=== PATIENT | female | born 1950 | race Caucasian/White ===

== ENCOUNTER 2024-07-13 22:37 | Observation (INO) ==
--- NOTE | 2024-07-13 22:48 | Emergency Department Note ---
HPI - Altered Mental Status General Chief Complaint: Altered Mental Status Stated Complaint: ALTERED MENTAL STATUS Time Seen by Provider: 07/13/24 22:43 Source: patient and family Mode of arrival: walk-in Limitations: no limitations History of Present Illness HPI narrative: 73 yo female presented via family with acute onset confusion, difficulty speaking, incoordination between thought and written word. No other loss of sensation or function of arms or legs. No dyspnea or cheat pain. Patient was sent to [facility] this week with NSTEMI and had a LHC with Dr. Suzette Alba on 07/12/24. He did not stent. She takes Plavix and 81mg ASA daily. Concern is high for post-ischemic or post-cath thrombus or plaque and resultant TIA. Symptoms reportedly began suddenly with inability to write what she was thinking and then dysarthria and dysphasia. Within the next hour she slowly improved with an NIH score "0" on initial assessment here. Stat CT was ordered, code stroke initiated. I have personally reviewed the TRIAGE and nursing intake notes and I agree with those. I also reviewed the available medical history and prior visit notes (where available) for this patient. No NVD, chest or abdominal pain. VSS, AAOx4, GCS=15, ambulatory, NAD. Tolerating PO. MD complaint: altered mental status, confusion and weakness Onset (ago): hour(s) (1) Timing confirmed by: family member Severity: mild-moderate Consistency of symptoms: unknown (resolved) Context: other (see note) Associated symptoms: denies other symptoms Related Data Allergies Allergy/AdvReac Type Severity Reaction Status Date / Time amlodipine Allergy Mild Verified 07/13/24 22:51 promethazine (From Phenergan) Allergy Mild Verified 07/13/24 22:51 Review of Systems Status of ROS 10 or more systems reviewed and unremark able except as noted in history and below PFSH PFSH Medical History (Updated 07/14/24 @ 00:19 by Aaliyah Mclaughlin RN) Anxiety HLD (hyperlipidemia) HTN (hypertension) CAD (coronary artery disease) Surgical History (Updated 07/14/24 @ 00:19 by Aaliyah Mclaughlin RN) Hx of CABG Social History Smoking status: never smoker Problems where you live: no known problems Highest level of school completed/degree received: high school Feel stressed/tense/nervous/anxious/difficulty sleeping: not at all Exam Constitutional: normal general appearance and no apparent distress Vital Signs - 24 hr 07/13/24 22:37 07/13/24 23:30 07/14/24 00:30 Temperature 98 F Pulse Rate 68 74 71 Pulse Rate [Right Brachial] Respiratory Rate 16 16 14 Blood Pressure 164/75 195/86 196/89 Blood Pressure [Ri ght Arm] Pulse Oximetry 100 97 99 Oxygen Delivery Me thod Room Air Room Air Room Air 07/14/24 01:15 07/14/24 01:23 Temperature 98.8 F Pulse Rate 67 Pulse Rate [Right Brachial] 78 Respiratory Rate 13 18 Blood Pressure 147/63 Blood Pressure [Ri ght Arm] 158/69 Pulse Oximetry 97 97 Oxygen Delivery Me thod Room Air Room Air HENMT: normocephalic and head/scalp atraumatic Eyes: PERRL and EOMs intact bilaterally Neck/C-Spine: visual inspection normal, trachea midline and no meningeal signs Lymph: no lymphadenopathy noted Chest: inspection of chest normal and palpation of chest normal Respiratory: breath sounds equal bilaterally and normal respiratory effort Cardiovascular: normal heart rate noted, regular rhythm noted and peripheral pulses 2+ throughout Gastrointestinal: abdomen normal to inspection and abdomen soft to palpation Extremities: normal to inspection and normal to palpation 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 Psychiatry: mental status grossly normal and oriented x3 Skin: skin color normal and no rash Course Reevaluation(s) Reevaluation #1: Differential diagnosis includes possible CVA hemorrhagic -vs infarct. Primary exam with/without AMS (GCS = ) on arrival. Airway intact. Patient with acute onset headache (location), confusion, pain described as stabbing, sudden/ progressive onset. Prior history/No prior history headaches or CVA/TIA. Currently euvolemic without evidence of dehydration or hyperglycemia. Doubt bacterial pneumonia as no recent fever, chills, cough. No recent travel or hospitalization. No ill family members. Patient is not immunocompromised. CHF is possible but no JVD or peripheral edema. TAA unlikely with similar bilateral UE pulses and BP. No recent trauma so doubtful cardiac tamponade (no chest trauma or distended neck veins) or tension PTx (no absent BS or deviated trachea). No evidence of surgical abdomen or other acute medical emergency including bowel obstruction, viscus perforation, vascular catastrophe, atypical appendicitis, acute cholecystitis, UGIB, thyrotoxicosis, or diverticulitis at this time. Reevaluation #2: I did speak with Dr. West at [facility] regarding presentation, etc. He agrees with assessment and my concern of a post-cath embolism and TIA. He also agrees with admission here and echo as soon as available. She will need serial neurochecks, telemetry. Vital Signs Vital signs: Vital Signs Temperature 98 F 07/13/24 22:37 Pulse Rate 68 07/13/24 22:37 Respiratory Rate 16 07/13/24 22:37 Blood Pressure 164/75 07/13/24 22:37 Pulse Oximetry 100 07/13/24 22:37 Oxygen Delivery Method Room Air 07/13/24 22:37 Temperature 98.8 F 07/14/24 02:39 Pulse Rate 78 07/14/24 02:39 Respiratory Rate 18 07/14/24 02:39 Blood Pressure 158/69 07/14/24 02:39 Pulse Oximetry 98 07/14/24 02:39 Oxygen Delivery Method Room Air 07/14/24 02:39 MDM - Altered Mental Status MDM Narrative Medical decision making narrative: Differential diagnosis includes possible CVA hemorrhagic -vs infarct - vs TIA. Primary exam with/without AMS (GCS =15) on arrival. Airway intact. Patient with no acute onset headache, but transient confusion, dysarthria and dysphasia consistent with TIA. Prior history/No prior history headaches or CVA/TIA. Currently euvolemic without evidence of dehydration or hyperglycemia. Doubt bacterial pneumonia as no recent fever, chills, cough. No recent travel or hospitalization. No ill family members. Patient is not immunocompromised. CHF is possible but no JVD or peripheral edema. TAA unlikely with similar bilateral UE pulses and BP. No recent trauma so doubtful cardiac tamponade (no chest trauma or distended neck veins) or tension PTx (no absent BS or deviated trachea). No evidence of surgical abdomen or other acute medical emergency including bowel obstruction, viscus perforation, vascular catastrophe, atypical appendicitis, acute cholecystitis, UGIB, thyrotoxicosis, or diverticulitis at this time. Medical Records Attestation: I reviewed the patient's medical records. Lab Data Attestation: I reviewed the patient's lab results. Labs: Lab Results 07/13/24 07/13/24 Range/Units 21:45 23:10 WBC 4.8 (4.3-9.3) K/uL RBC 4.2 (4.00-5.50) M/uL Hgb 13.5 (12.5-15.8) gm/dL Hct 38.1 (35.9-46.7) % MCV 91.8 (81.0-93.7) fl MCH 32.6 H (27.6-32.2) pg MCHC 35.5 H (33.1-35.3) g/dl RDW 12.5 (11.4-14.2) % Plt Count 307 (152-353) K/uL MPV 8.2 (6.9-10.8) fl Gran % 46.4 L (47.8-71.3) % Lymph % (Auto) 36.4 (20.0-43.0) % [place] % (Auto) 15.3 H (3.6-9.8) % Eos % (Auto) 1.3 (0.4-2.8) % Baso % (Auto) 0.6 (0.1-0.85) Lymph # (Auto) 1.7 (1.1-3.1) [place] # (Auto) 0.7 L (1.1-3.1) Eos # (Auto) 0.1 (0.0-0.2) Baso # (Auto) 0.0 (0.0-0.1) Absolute Gran (auto) 2.2 L (2.3-6.0) PT 12.9 (12.1-15.0) SECONDS PT Normal Control 13.7 INR 0.92 APTT 25.8 (23.9-36.7) SECONDS Sodium 131 L (136-145) mmol/L Potassium 3.5 L (3.6-5.2) mmol/L Chloride 91.0 L (98-107) mmol/L Carbon Dioxide 34 H (21-32) mmol/L Anion Gap 6.0 (4-14) mEq/L BUN 19 H (7-18) mg/dL Creatinine 1.0 (0.6-1.3) mg/dL Estimated GFR 59.9 (>59.9) Glucose 71 (70-110) mg/dL Lactic Acid 0.8 (0.27-1.43) mmol/L Calcium 9.3 (8.5-10.1) mg/dL Magnesium 2.0 (1.8-2.4) mg/dL Total Bilirubin 0.41 (0.0-1.0) mg/dL AST 23 (15-37) U/L ALT 21 L (30-65) U/L Alkaline Phosphatase 80 (50-136) U/L Total Protein 7.3 (6.4-8.2) g/dL Albumin 4.6 (3.4-5.0) g/dL Imaging Data Imaging ordered: Chest x-ray (No focal consolidation is seen.) and CT scan - head (Mild cortical atrophy with microvascular ischemic white matter changes. No acute intracranial pathology) Attestation: I have reviewed the pertinent imaging results. My impression: NAD head and chest Radiologist's impression: See note above ECG Data Attestation: I personally reviewed and interpreted this ECG as follows: (NSR @ 66 w/LVH) ECG interpretation date: 07/13/24 ECG interpretation time: 23:40 Prior ECG tracings: not available for review Core Measures AMI core measures followed [ED.MDM.AMI]: Yes Critical Care Time Critical Care Time Critical Care Time: Yes Total Critical Care Time: 75 Attestation: Due to the presence of AMS__ or the risk of deterioration due to _TIA___ my attendance to this patient required critical care time of _75__ minutes, including assessment/reassessment, documentation, ordering and interpreting ancillary studies, discussion with ED staff and consultants, patient and their family, and excludes time spent on separately billable procedures. Discharge Plan Discharge Patient Disposition: Admitted As Observation Condition: Improved Clinical Impression: Brain TIA, Altered mental status, CAD (coronary artery disease) Interventions: ED Discharge Assessment Last Done: 07/14/24 02:30 ED Discharge Vital Sign Last Done: 07/14/24 02:30 Emergency Department Charge Sheet Last Done: 07/14/24 02:38 Time of Disposition: 01:34 Discharge Date/Time: 07/14/24 02:30
[2024-07-13 23:00] LABS: Basophils%(Percent) Auto 0.6 (0.1-0.85); Eosinophils#(Absolute)Auto 0.1 (0.0-0.2); Eosinophils%(Percent) Auto 1.3 % (0.4-2.8); Granulocytes % - Auto 46.4 % (47.8-71.3); Granulocytes#(Absolute)- Auto 2.2 (2.3-6.0); Hematocrit 38.1 % (35.9-46.7); Mean Corpuscular Volume 91.8 fl (81.0-93.7); Monocytes #(Absolute)- Auto 0.7 (1.1-3.1); Monocytes %(Percent)- Auto 15.3 % (3.6-9.8); Platelet Count 307 K/uL (152-353); White Blood Count 4.8 K/uL (4.3-9.3)
[2024-07-13 23:34] LABS: INR 0.92
[2024-07-14 00:47] LABS: Potassium 3.5 mmol/L (3.6-5.2)
[2024-07-14] MEDS ORDERED: ACETAMINOPHEN 325 MG TABLET PO PRN (01:28)
[2024-07-14] MEDS: LORazepam 1 MG TABLET PO PRN (03:06)
[2024-07-14 05:09] LABS: Basophils%(Percent) Auto 0.6 (0.1-0.85); Eosinophils%(Percent) Auto 0.6 % (0.4-2.8); Granulocytes % - Auto 64.5 % (47.8-71.3); Hematocrit 35.6 % (35.9-46.7); Mean Corpuscular Volume 91.6 fl (81.0-93.7); Monocytes #(Absolute)- Auto 0.5 (1.1-3.1); Monocytes %(Percent)- Auto 10.6 % (3.6-9.8); Platelet Count 233 K/uL (152-353); White Blood Count 4.7 K/uL (4.3-9.3)
[2024-07-14 05:45] LABS: Potassium 3.2 mmol/L (3.6-5.2)
[2024-07-14] MEDS ORDERED: ALPRAZolam 1 MG TABLET PO SCH (10:15)
[2024-07-14] MEDS: ALPRAZolam 1 MG TABLET ONE (10:17)
[2024-07-14] MEDS: ALPRAZolam 1 MG TABLET PO STA (10:18)
[2024-07-14] MEDS: carvediloL 6.25 MG TABLET PO SCH (11:45)
[2024-07-14] MEDS: PANTOPRAZOLE SODIUM 40 MG TABLET.DR PO SCH (14:47)
[2024-07-14] MEDS: CLOPIDOGREL BISULFATE 75 MG TABLET PO SCH (14:47)
[2024-07-14] MEDS: SERTRALINE HCL 50 MG TABLET PO SCH (14:48)
[2024-07-14] MEDS: LOSARTAN POTASSIUM 50 MG TABLET PO SCH ×2 (14:50→20:49)
[2024-07-14] MEDS: ALPRAZolam 1 MG TABLET PO SCH ×2 (15:00→15:07)
[2024-07-14] MEDS: ATORVASTATIN CALCIUM 10 MG TABLET PO SCH (20:50)
[2024-07-15 04:31] VITALS: RESP 16
[2024-07-15 07:53] VITALS: BP 178/77; TEMP 98.1
[2024-07-15] MEDS: hydroCHLOROthiazide 25 MG TABLET PO SCH (08:47)
[2024-07-15] MEDS ORDERED: BUTALB/ACETAMINOPHEN/CAFFEINE 1 EACH TABLET PO PRN (12:00)
[2024-07-15] MEDS ORDERED: NITROGLYCERIN 0.4 MG TAB.SUBL SL PRN (12:00)
[2024-07-15 12:29] VITALS: PULSE 68
[2024-07-15] MEDS: ALPRAZolam 1 MG TABLET PO SCH (12:29)
--- NOTE | 2024-07-15 12:31 | Discharge Summary ---
DS: Providers Provider Date of admission: 07/14/24 01:28 Primary care physician: Zurdo Ramírez NP DS: Diagnosis Discharge Diagnosis (1) TIA (transient ischemic attack): Plan Home with OP Echo PCP 1 week Neurology referral Cardiology F/U 1-2 weeks DS: Summary Hospital Course Hospital Course: Ms. Davidson was admitted on 07/14/24 from the ED with complain of slurred speech that lasted only 15 minutes after arrival. Recently had cardiac cathetherization last week and she has been on plavix and aspirin. Labs were stable during her stay. BP was elevated but appropriate for outpatient treatment. Echo was ordered but with patient improvement and stabilization arrangements were made for outpatient echo. Neurology referral was also made for discharge, cardiology for echo follow up. Follow up with PCP in 1 week. Status at Discharge Functional status at discharge: independent ambulation Overall status at discharge: patient is back to baseline Time Spent with Patient Time attestation: Total time spent providing and/or coordinating discharge services: Time spent: greater than 30 minutes Exam Constitutional: normal general appearance Vital Signs - 24 hr 07/14/24 15:00 07/14/24 19:00 07/14/24 19:18 Temperature 98.2 F 97.7 F 97.7 F Pulse Rate [Right Brachial] 60 70 70 Respiratory Rate 19 20 20 Blood Pressure Blood Pressure [Ri ght Arm] 134/64 152/56 152/56 Pulse Oximetry 100 98 98 Oxygen Delivery Me thod Room Air Room Air Room Air 07/14/24 20:49 07/14/24 23:00 07/15/24 03:00 Temperature 97.5 F L 97.8 F Pulse Rate [Right Brachial] 64 74 Respiratory Rate 18 16 Blood Pressure 152/56 Blood Pressure [Ri ght Arm] 110/63 153/54 Pulse Oximetry 99 Oxygen Delivery Me thod Room Air Room Air 07/15/24 07:52 Temperature 98.1 F Pulse Rate [Right Brachial] 66 Respiratory Rate 16 Blood Pressure Blood Pressure [Ri ght Arm] 178/77 Pulse Oximetry 99 Oxygen Delivery Me thod Room Air HENMT: normocephalic and head/scalp atraumatic Eyes: PERRL, EOMs intact bilaterally and conjunctivae normal Neck/C-Spine: visual inspection normal Lymph: no lymphadenopathy noted Chest: inspection of chest normal Respiratory: breath sounds equal bilaterally and normal respiratory effort Cardiovascular: normal heart rate noted Gastrointestinal: abdomen normal to inspection and abdomen soft to palpation Genitourinary: no CVA tenderness Back/Pelvis: spine normal to inspection and no thoracic spine tenderness Extremities: normal to inspection, normal to palpation and no tenderness 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 atorvastatin 20 mg tablet 20 mg PO BEDTIME Patient Comments: TAKE ONE TABLET BY MOUTH AT BEDTIME carvedilol 12.5 mg tablet 12.5 mg PO Q12H Patient Comments: TAKE 1/2 TABLET BY MOUTH IN THE MORNING AND TAKE ONE TABLET IN THE EVENING clonidine 0.1 mg/24 hr patch weekly 1 patch transdermal .q week Patient Comments: APPLY 1 PATCH TO SKIN IF BLOOD PRESSURE GETS HIGHER THAN 160/100 ONCE A WEEK clopidogrel 75 mg tablet 75 mg PO DAILY Patient Comments: TAKE ONE TABLET BY MOUTH DAILY hydrochlorothiazide 25 mg tablet 12.5 mg PO DAILY Patient Comments: TAKE 1/2 TABLET BY MOUTH ONCE DAILY losartan 100 mg tablet 100 mg PO DAILY Patient Comments: TAKE ONE TABLET BY MOUTH ONCE DAILY omeprazole 40 mg capsule,delayed release(DR/EC) 40 mg PO DAILY Patient Comments: TAKE ONE CAPSULE BY MOUTH ONCE DAILY 30 MINUTES BEFORE MORNING MEAL sertraline 50 mg tablet 50 mg PO DAILY Patient Comments: TAKE ONE TABLET BY MOUTH ONCE DAILY [id number] 50-325-40 mg tablet 1 tab PO Q4H PRN (Reason: headache) Patient Comments: TAKE 1 TABLET BY MOUTH EVERY 4 TO 6 HOURS NEEDED PAIN / FOR HEADACHE nitroglycerin 0.4 mg tablet, sublingual 0.4 mg sublingual Q5M PRN (Reason: chest pain) Patient Comments: Dissolve 1 tablet under tongue for chest pain--repeat 1 tab every 5 minutes for max of 3 tabs --if no relief in 5 minutes call 911--- Discharge Orders: Discharge Order (Routine); Ordered 07/15/24 Ordered By: Toni Mcwilliams Activity: increase activity as tolerated Activity Detail: as tolerated Diet: low fat, low cholesterol and low salt diet Interventions: Discharge Assessment Last Done: 07/15/24 12:18 MED/SURG & ICU Observation Charge Sheet Last Done: 07/15/24 12:20 Patient Instructions: Transient Ischemic Attack (DC) Activity Restrictions/Additional Instructions: CONTINUE TAKING ALL ROUTINE HOME MEDICATIONS FOLLOW-UP WITH [facility]NEUROLOGY -THEY WILL CALL YOU WITH APPOINTMENT DATE AND TIME. FOLLOW-UP WITH MEI WAHL KEEP FOLLOW-UP APPOINTMENT WITH DR. BARLOW IF ANY WEAKNESS, SLURRED SPEECH, CHANGES IN VISION, FALLS, CHEST PAIN/TIGHTNESS/PRESSURE OCCURS CALL 911 OR GO TO YOUR CLOSEST ER. Forms: Portal/Health Info Access Inst Follow-Ups: Zurdo Ramírez NP [Primary Care Provider] -
[2024-07-16] MEDS ORDERED: OMEPRAZOLE 40 MG PO SCH (09:00)
[2024-07-19] MEDS ORDERED: CLONIDINE 0.1 MG/24 HR TD SCH (09:00)
== END 2024-07-15 14:04 | disposition home or self-care (01) ==
LOC: MS 22:37 → ED 22:37 → MS 07-14 02:30
PROVIDERS: ADMIT Physician Assistant Medical; ATTEND Nurse Practitioner Family